=== PATIENT | male | born 1995 | race African-American/Black ===

== ENCOUNTER 2017-09-20 15:49 | Emergency (ER) | payer OTHER | END 2017-09-20 17:32 | disposition home or self-care (01) | LOC: M ED 15:49 | DX: S01.01XA Laceration without foreign body of scalp, initial encounter (principal); W51.XXXA Accidental striking against or bumped into by another person, initial encounter; Y92.830 Public park as the place of occurrence of the external cause | CPT/HCPCS: 12002 ==

== ENCOUNTER 2018-10-06 20:47 | Emergency (ER) | payer OTHER ==
[~2018-10-06] VITALS: Ht 180.3 cm; Wt 79.5 kg
[2018-10-06] MEDS ORDERED: IBUP-1022 PO (23:32)
[2018-10-06 23:35] VITALS: BP 117/70
--- NOTE | 2018-10-07 08:26 | REP ---
Right knee six views: There is no fracture or dislocation. The joint spaces are normal. There is no hemarthrosis. There are no calcifications. There is a focal ovoid lucency in the distal femur at the intercondylar notch measuring 12 mm. There is a focal lucency laterally in the medial femoral condyle, subcortical measuring 6 mm. These lucencies are identified on the AP view, but are not identified on any of the other views. There are no comparison studies. I would recommend follow-up of these focal lucencies with MRI. Impression: No fracture, dislocation, or hemarthrosis. However, there are two lucencies in the distal femur as described, identified on the AP view only. I would recommend follow-up of these lucencies with MRI. Electronically Signed by Kameron Aldana MD 10/07/2018 08:18 A
--- NOTE | 2018-10-07 14:25 | ED PDOC ---
Post-Departure Follow-Up ft sarah andujar faxed formal report of right knee xray for fu Griffin Sanderson MD Oct 07, 2018 14:25
== END 2018-10-06 23:44 | disposition home or self-care (01) ==
LOC: M ED 20:47
DX: S83.91XA Sprain of unspecified site of right knee, initial encounter (principal); X50.9XXA Other and unspecified overexertion or strenuous movements or postures, initial encounter; Y92.39 Other specified sports and athletic area as the place of occurrence of the external cause

== ENCOUNTER 2019-02-12 20:22 | Emergency (ER) | payer OTHER ==
[~2019-02-12] VITALS: Ht 180.3 cm; Wt 77.3 kg
[~2019-02-12 20:22] MED LIST: IBUP-1022 PO
[2019-02-12 20:28] VITALS: BP 141/88
--- NOTE | 2019-02-13 08:15 | REP ---
Nasal bone series three views: There is a nondisplaced nasal bone fracture. The visualized paranasal sinuses are clear. Electronically Signed by Kameron Aldana MD 02/13/2019 08:06 A
== END 2019-02-12 22:39 | disposition home or self-care (01) ==
LOC: M ED 20:22
DX: S02.2XXA Fracture of nasal bones, initial encounter for closed fracture (principal); W50.0XXA Accidental hit or strike by another person, initial encounter; Y92.9 Unspecified place or not applicable; Y93.89 Activity, other specified; Y99.9 Unspecified external cause status; Z87.81 Personal history of (healed) traumatic fracture